=== PATIENT | male | born 1955 | race Caucasian/White ===

== ENCOUNTER 2024-08-05 20:54 | Emergency (ER) | payer MEDICARE, SELFPAY ==
[2024-08-05] VITALS (27 sets, daily range): BP systolic 54–152; BP diastolic 33–116; PULSE 59–68; RESP 14–16; TEMP 36.6; O2SAT 94–98; BMI 23.6
--- NOTE | 2024-08-05 21:08 | ED.GENADULT ---
HPI - General Adult General Date Seen: 08/05/24 Chief complaint: Laceration/Wound Stated complaint: Fall, head lac Time Seen by Provider: 08/05/24 21:08 Source: patient, family and RN notes reviewed Mode of arrival: ambulatory Limitations: altered mental status History of Present Illness HPI narrative: Rickey is a 69-year-old male from [place] who was camping out at [place] who fell and hit his forehead on a railroad tie. He was confused according to his significant other. Nursing staff notes continued feet confusion here and thus we called a T TA. Rickey notes that he has been drinking and fell tonight. He denies any prodromal symptoms prior to the fall. He is otherwise healthy. He uses Prilosec for heartburn otherwise no history of heart problems. I do ask if he has neck pain tonight and he is talking about other events. Some rumination in his thought process. Overall denies chest pain abdominal pain nausea vomiting. Related Data Allergies Allergy/AdvReac Type Severity Reaction Status Date / Time No Known Drug Allergies Allergy Verified 08/05/24 23:15 Review of Systems Status of ROS: Reports: unobtainable due to mental status Narrative: Healthy according to . [facility] Social History Smoking Status: Current some day smoker What tobacco products do you use: cigarettes Do you use any of these nicotine containing products: None How often do you have a drink containing alcohol: 4 or more times a week How many standard drinks containing alcohol do you have on a typical day: 5 or 6 How often do you have six or more drinks on one occasion: Weekly AUDIT-C Alcohol total score: 9 Non-prescribed substance use: denies use service: No Exam Narrative: Exam Narrative: Airway is open Breathing is easy Circulation-wound on forehead is hemostatic. Disability-no other deformities. Patient is awake, GCS of 14. EOM is full. Pupils are 3 mm and her sluggishly reactive bilaterally. He has a large stellate lesion noted over the medial aspect of his right eyebrow onto the forehead. This compromises epidermis dermis subcutaneous tissue. I do not note any foreign bodies read the right now. Eyebrow raise is intact. No step-offs palpated. No drainage from ears nose. Speech is normal. Neck is palpated any does not have any midline cervical tenderness. Heart with a regular rate and rhythm and lungs are clear abdomen is soft nontender. Pelvis is stable. Moving all extremities. Superficial abrasion on the right tibia. Moving all extremities. Palpation down thoracic lumbar spine without pain. Abdomen is soft nontender. Const: Vital Signs, click to edit/add: Vital Signs - 24 hr 08/05/24 20:58 08/05/24 21:09 08/05/24 21:23 Temperature 98 F Pulse Rate 64 66 Pulse Rate [Right Radial] 67 Respiratory Rate 16 Blood Pressure 143/97 H Blood Pressure [Ri ght Upper Arm] 152/116 H Pulse Oximetry 97 96 Oxygen Delivery Me thod Room Air 08/05/24 21:24 08/05/24 21:30 08/05/24 21:31 Temperature Pulse Rate 63 61 62 Pulse Rate [Right Radial] Respiratory Rate Blood Pressure 135/92 H Blood Pressure [Ri ght Upper Arm] Pulse Oximetry 97 98 96 Oxygen Delivery Me thod 08/05/24 21:42 08/05/24 21:44 08/05/24 21:45 Temperature Pulse Rate 63 61 Pulse Rate [Right Radial] Respiratory Rate Blood Pressure 54/33 L 132/95 H Blood Pressure [Ri ght Upper Arm] Pulse Oximetry 97 97 Oxygen Delivery Me thod 08/05/24 21:51 08/05/24 21:52 08/05/24 22:00 Temperature Pulse Rate 60 65 62 Pulse Rate [Right Radial] Respiratory Rate 14 Blood Pressure 125/95 H Blood Pressure [Ri ght Upper Arm] Pulse Oximetry 97 97 97 Oxygen Delivery Me thod 08/05/24 22:03 08/05/24 22:11 08/05/24 22:15 Temperature Pulse Rate 64 60 67 Pulse Rate [Right Radial] Respiratory Rate 16 16 Blood Pressure 135/91 H 121/80 Blood Pressure [Ri ght Upper Arm] Pulse Oximetry 97 96 96 Oxygen Delivery Me thod 08/05/24 22:21 08/05/24 22:30 08/05/24 22:31 Temperature Pulse Rate 63 62 59 L Pulse Rate [Right Radial] Respiratory Rate 14 14 Blood Pressure 120/81 121/80 Blood Pressure [Ri ght Upper Arm] Pulse Oximetry 96 95 96 Oxygen Delivery Me thod 08/05/24 22:32 08/05/24 22:41 08/05/24 22:45 Temperature Pulse Rate 62 63 66 Pulse Rate [Right Radial] Respiratory Rate 14 Blood Pressure 122/80 Blood Pressure [Ri ght Upper Arm] Pulse Oximetry 95 95 96 Oxygen Delivery Me thod 08/05/24 22:52 08/05/24 23:00 08/05/24 23:02 Temperature Pulse Rate 64 62 63 Pulse Rate [Right Radial] Respiratory Rate 16 16 Blood Pressure 127/87 129/92 H Blood Pressure [Ri ght Upper Arm] Pulse Oximetry 96 94 96 Oxygen Delivery Me thod Documenting provider has reviewed patient's vital signs: yes Course Course ED Course: Differential diagnosis includes but is not limited to skull fracture, intracranial bleed, electrolyte imbalance, alcohol intoxication. IV has been placed and labs drawn to include CBC, comprehensive, EtOH, EKG. Will obtain head and cervical spine CTs. Reevaluation(s) Reevaluation #1: Patient agrees to update tetanus an Adacel has been ordered. Reevaluation #2: Patient's wound was cleansed. No foreign bodies were noted. Anesthetized with 1% lidocaine with epinephrine. Wound explored no foreign bodies were noted. Wound with irrigation by nursing staff Wound itself was 3-1/2 cm with extension of the contreras in the midline approximately 4 mm inferiorly. This wound was located on the forehead immediately above the medial aspect of the right eyebrow. 5 sutures of 5 0 Vicryl were placed in interrupted fashion to bring the underlying tissue together. Nine sutures of 6 0 Ethilon were used on the surface to bring the wound edges together. The wound edges were jagged and may serrated and edematous. However, good wound approximation was achieved. Reevaluation #3: Upon closer inspection patient now has ecchymosis on the bridge of the nose. Some dried blood at the [place]. No evidence of septal hematoma. States that his nose was broken as a kid and there is some septal deviation. Have requested a facial CT. Vital Signs Vital signs: Initial Vital Signs Temperature 98 F 08/05/24 20:58 Temperature Source Temporal Artery Scan 08/05/24 20:58 Pulse Rate 67 08/05/24 20:58 Pulse Rhythm Regular 08/05/24 20:58 Respiratory Rate 16 08/05/24 20:58 Blood Pressure 152/116 H 08/05/24 20:58 Blood Pressure Mean 128 H 08/05/24 20:58 Pulse Oximetry 97 08/05/24 20:58 Oxygen Delivery Method Room Air 08/05/24 20:58 Vital Signs Temperature 98 F 08/05/24 20:58 Pulse Rate 67 08/05/24 20:58 Respiratory Rate 16 08/05/24 20:58 Blood Pressure 152/116 H 08/05/24 20:58 Pulse Oximetry 97 08/05/24 20:58 Oxygen Delivery Method Room Air 08/05/24 20:58 Temperature 98 F 08/05/24 20:58 Pulse Rate 63 08/05/24 23:02 Respiratory Rate 16 08/05/24 23:02 Blood Pressure 129/92 H 08/05/24 23:02 Pulse Oximetry 96 08/05/24 23:02 Oxygen Delivery Method Room Air 08/05/24 20:58 Medications Administered Medications: Discontinued Medications Generic Name Dose Route Start Last Admin Trade Name Freq PRN Reason Stop Dose Admin Acetaminophen 1,000 mg 08/05/24 23:33 08/06/24 00:04 Acetaminophen 500 Mg Tablet PO 08/05/24 23:34 1,000 mg ONCE ONE Administration Diphtheria/Tetanus/Acell Pertussis 0.5 ml 08/05/24 22:10 08/05/24 22:38 Tetanus/Diphth/Pertussis 0.5 Ml Syringe IM 08/05/24 22:11 0.5 ml .ONCE ONE Administration Lidocaine/Epinephrine 20 ml 08/05/24 21:42 08/06/24 00:05 Lidocaine 1%-Epi 1:100,000 INFILTRATI 08/05/24 21:43 20 ml ONCE ONE Administration Medical Decision Making [facility] Narrative Medical decision making narrative: 1. Concussion-patient does repeat questions. Hard to tell if this is from his injury verses his elevated alcohol level. Fortunately head CT was without evidence of bleed. Patient has remained alert and awake in the ER. No further complications. Asked that he abstain from any activity which could place him at a risk for further falls over the next week. Tylenol or ibuprofen as needed for discomfort. At this time would not offer anything stronger as he does have elevated alcohol level. 2. Face laceration-14 sutures were placed to repair this laceration. Superficial sutures will need removal in 5-6 days time. Monitor for signs and symptoms of infection. Recommend the use of a thin layer bacitracin twice daily to this area. Do not swim or soak head on till sutures are removed. Tetanus updated today as previous tetanus was 2010 3. Fall-no other injury at this time. Abdomen is soft nontender. Palpation of back is without any discomfort. CT of the spine is negative. Facial CT without evidence of facial fracture. Follow-up for worsening symptoms. 4. Alcohol intoxication-alcohol level 0.39. Patient states that he has been ?day drinking? since he retired in March. He denies a history of withdrawal if and denies the need to have an alcoholic drink 1st thing in the morning. However, having achieved this high number and being essentially able to converse is of course worrisome. I recommend following up with his primary MD as he will likely need support as he discontinues drinking. Bilirubin is elevated at 1.6 as is AST. ALT within normal limits. 5. Disposition-home at this time. Return for vomiting, worsening symptoms and as needed. 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 Labs: Lab Results 08/05/24 08/05/24 Range/Units 21:15 21:55 WBC 8.90 (4.50-11.00) K/uL RBC 4.39 (4.30-5.90) m/uL Hgb 15.2 (13.5-17.5) gm/dL Hct 43.0 (37.0-53.0) % MCV 98 (80-100) fL MCH 35 H (26-34) pg MCHC 35 (32-36) gm/dL RDW Coeff of Yolette 12.0 (11.5-15.5) % Plt Count 228 (140-440) K/uL Neut % (Auto) 38.2 L (42.0-72.0) % Lymph % (Auto) 44.0 (20-44) % Amite % (Auto) 8.9 (0.0-11.0) % Eos % (Auto) 8.1 H (0.0-7.0) % Baso % (Auto) 0.4 (0.0-3.0) % Neut # (Auto) 3.40 (1.7-7.0) K/uL Lymph # (Auto) 3.92 H (0.90-2.90) K/uL Amite # (Auto) 0.80 (0.00-0.90) K/UL Eos # (Auto) 0.70 H (0.00-0.50) K/uL Baso # (Auto) 0.04 (0.00-0.30) K/uL Abs Immat Gran (auto) 0.04 (0.00-0.30) K/uL Imm/Tot Granulo (auto) 0.4 % Sodium 137 (135-149) mmol/L Potassium 5.7 H 3.8 (3.6-5.1) mmol/L Chloride 103 (96-114) mmol/L Carbon Dioxide 23 (20-32) mmol/L Anion Gap 11 (7-15) mEq/L BUN 13 (7-30) mg/dL Creatinine 0.7 (0.5-1.5) mg/dL Estimated Creat Clear 68.40 Estimated GFR 100 ml/min Glucose 103 (60-115) mg/dL Calcium 8.8 (8.4-10.6) mg/dL Total Bilirubin 1.6 H (0.1-1.5) mg/dL AST 83 H (12-35) U/L ALT 34 (4-50) U/L Alkaline Phosphatase 24 L (40-150) U/L Total Protein 8.7 H (6.0-8.3) g/dL Albumin 5.1 H (3.3-5.0) g/dL Ethyl Alcohol 0.39 H* (0.01-0.03) % Imaging Data CT scan - head: Attestation: I have reviewed the pertinent imaging results. Radiologist's impression: No acute intracranial hemorrhage. No mass effect or midline shift. No hydrocephalus or extra-axial collections. White matter is within normal limits for age. Intracranial vascular calcifications. No acute osseous abnormalities. High-grade polypoid mucosal thickening paranasal sinuses. Normal soft tissues. IMPRESSION: IMPRESSION: 1. No acute intracranial abnormalities. Cervical spine CT: Attestation: I have reviewed the pertinent imaging results. My impression: I did not note any acute fractures. Radiologist's impression: No acute fracture or traumatic malalignment of the cervical spine. Craniocervical junction alignment is maintained. Advanced disc degeneration C3-4, C4-5, C5-6 and C6-7. [id number] disc degeneration elsewhere. Scattered uncovertebral and facet arthrosis with high-grade neural foraminal stenosis at C3-4 on the right, C4-5 bilaterally, C5-6 bilaterally, and low-grade elsewhere. No CT visualized high-grade spinal canal stenosis. Bony fusion along the left C3-4 and right C4-5 posterior elements. Imaged intracranial structures, cervical and paraspinous soft tissues are normal in appearance. The visualized pulmonary apices are clear. IMPRESSION: 1. No acute fracture or traumatic malalignment of the cervical spine. Facial CT: Attestation: I have reviewed the pertinent imaging results. My impression: I do not note any evidence of fracture. Radiologist's impression: Facial bones: No fractures or bone lesions. Specifically the nasal bones, temporomandibular joints, maxilla and mandible appear intact. Orbits and globes: Globes are intact. No sign of intraorbital hemorrhage or emphysema. Sinuses: Moderate polypoid mucosal thickening in the maxillary sinuses. Mild scattered mucosal thickening in the ethmoid air cells and sphenoid sinuses. Soft tissues: Right superior periorbital soft tissue swelling. IMPRESSION: Right superior periorbital soft tissue swelling. No acute facial fracture. ECG Data Attestation: I personally reviewed and interpreted this ECG as follows: Interpretation: EKG by my read shows sinus bradycardia at a rate of 59. First-degree heart block is noted with a MA interval of 2-2 milliseconds. I do not note any acute ST or T-wave changes. Discharge Plan Discharge Clinical Impression: Laceration, Fall, Concussion, Alcohol intoxication Patient Disposition: Home w/ Parent or Adult Condition: Improved Additional Instructions: 1. Sutures will be removed in 5-6 days time. You have 5 sutures under the skin that will dissolve. You will need to have the surgery was removed on the skin. Monitor for signs and symptoms of infection and seek medical attention for fever, purulent drainage and as needed. You may leave these open to air applying a thin layer of bacitracin twice daily to help with healing. Cover this area if you are in environment where the wound may get dirty. 2. Your alcohol level is significantly elevated today at 0.39. Please limit drinking. Consider support group and talked to your primary doctor about quitting. Your bilirubin is elevated at 1.6 and AST or liver function test is also elevated at 83. Please have this rechecked with your primary MD. 3. Avoid intense activity, bike riding, any activity that could place you at risk for injury if you fell again for 1 week as you recover from your concussion. Follow Up/Referrals: Provider,Not a Local [Primary Care Provider] - Stand Alone Forms: [employer] Info Instructions
--- NOTE | 2024-08-05 21:12 | CRLHL7_ITS ---
For Patients: As a result of the Century Cures Act, medical imaging exams and procedure reports are released immediately into your electronic medical record. You may view this report before your referring provider. If you have questions, please contact your health care provider. INDICATION: Fall. Hit head. TECHNIQUE: CT of the cervical spine without contrast. Coronal and sagittal reformats are included. COMPARISON: None. FINDINGS: No acute fracture or traumatic malalignment of the cervical spine. Craniocervical junction alignment is maintained. Advanced disc degeneration C3-4, C4-5, C5-6 and C6-7. [id number] disc degeneration elsewhere. Scattered uncovertebral and facet arthrosis with high-grade neural foraminal stenosis at C3-4 on the right, C4-5 bilaterally, C5-6 bilaterally, and low-grade elsewhere. No CT visualized high-grade spinal canal stenosis. Bony fusion along the left C3-4 and right C4-5 posterior elements. Imaged intracranial structures, cervical and paraspinous soft tissues are normal in appearance. The visualized pulmonary apices are clear. IMPRESSION: 1. No acute fracture or traumatic malalignment of the cervical spine. Please note that all CT scans at this facility use dose modulation, iterative reconstruction, and/or weight-based dosing when appropriate to reduce radiation dose to as low as reasonably achievable. Dictated by Kahlil Jaime MD @ 08/05/2024 9:44:20 PM (Electronically Signed)
--- NOTE | 2024-08-05 21:12 | CRLHL7_ITS ---
For Patients: As a result of the Century Cures Act, medical imaging exams and procedure reports are released immediately into your electronic medical record. You may view this report before your referring provider. If you have questions, please contact your health care provider. INDICATION: Fall. Hit head. TECHNIQUE: CT of the head without contrast. Coronal and sagittal reformats are included. COMPARISON: None. FINDINGS: No acute intracranial hemorrhage. No mass effect or midline shift. No hydrocephalus or extra-axial collections. White matter is within normal limits for age. Intracranial vascular calcifications. No acute osseous abnormalities. High-grade polypoid mucosal thickening paranasal sinuses. Normal soft tissues. IMPRESSION: IMPRESSION: 1. No acute intracranial abnormalities. Please note that all CT scans at this facility use dose modulation, iterative reconstruction, and/or weight-based dosing when appropriate to reduce radiation dose to as low as reasonably achievable. Dictated by Kahlil Jaime MD @ 08/05/2024 9:46:11 PM (Electronically Signed)
[2024-08-05 21:30] LABS: Basophils Absolute Auto 0.04 K/uL (0.00-0.30); Basophils Percent Auto 0.4 % (0.0-3.0); Eosinophils Percent Auto 8.1 % (0.0-7.0); Hemoglobin* 15.2 gm/dL (13.5-17.5); Immature Granulocytes Abs Auto 0.04 K/uL (0.00-0.30); Immature Granulocytes Pct Auto 0.4 %; Lymphocytes Absolute Auto 3.92 K/uL (0.90-2.90); Mean Corpuscular HGB Conc 35 gm/dL (32-36); Mean Corpuscular Hemoglobin 35 pg (26-34); Mean Corpuscular Volume 98 fL (80-100); Monocytes Percent Auto 8.9 % (0.0-11.0); Neutrophils Percent Auto 38.2 % (42.0-72.0); Platelet Count* 228 K/uL (140-440); Red Blood Count 4.39 m/uL (4.30-5.90)
[2024-08-05 21:32] LABS: Albumin* 5.1 g/dL (3.3-5.0); Chloride* 103 mmol/L (96-114)
[2024-08-05 21:33] LABS: Potassium* 5.7 mmol/L (3.6-5.1); Sodium* 137 mmol/L (135-149)
[2024-08-05 21:35] LABS: Anion Gap 11 mEq/L (7-15); Aspartate Amino Transferase* 83 U/L (12-35); Bilirubin Total* 1.6 mg/dL (0.1-1.5); Carbon Dioxide* 23 mmol/L (20-32); Creatinine* 0.7 mg/dL (0.5-1.5); Estimated Glomerular Filt Rate 100 ml/min
[2024-08-05 21:36] LABS: Alanine Aminotransferase* 34 U/L (4-50); Alkaline Phosphatase* 24 U/L (40-150); Blood Urea Nitrogen* 13 mg/dL (7-30); Calcium* 8.8 mg/dL (8.4-10.6); Glucose* 103 mg/dL (60-115); Total Protein* 8.7 g/dL (6.0-8.3)
[2024-08-05 21:45] LABS: Slide Review Reflex No
[2024-08-05 21:46] LABS: Ethanol* 0.39 % (0.01-0.03)
[2024-08-05 22:19] LABS: Potassium* 3.8 mmol/L (3.6-5.1)
[2024-08-05] MEDS: TETANUS/DIPHTH/PERTUSSIS 0.5 ML SYRINGE IM (22:38)
--- NOTE | 2024-08-05 23:11 | CRLHL7_ITS ---
For Patients: As a result of the Cures Act, medical imaging exams and procedure reports are released immediately into your electronic medical record. You may view this report before your referring provider. If you have questions, please contact your health care provider. INDICATION: Facial injury. TECHNIQUE: CT maxillofacial without contrast. COMPARISON: None. FINDINGS: Facial bones: No fractures or bone lesions. Specifically the nasal bones, temporomandibular joints, maxilla and mandible appear intact. Orbits and globes: Globes are intact. No sign of intraorbital hemorrhage or emphysema. Sinuses: Moderate polypoid mucosal thickening in the maxillary sinuses. Mild scattered mucosal thickening in the ethmoid air cells and sphenoid sinuses. Soft tissues: Right superior periorbital soft tissue swelling. IMPRESSION: Right superior periorbital soft tissue swelling. No acute facial fracture. Please note that all CT scans at this facility use dose modulation, iterative reconstruction, and/or weight-based dosing when appropriate to reduce radiation dose to as low as reasonably achievable. Dictated by Fidel Montalvo MD @ 08/06/2024 12:41:33 AM (Electronically Signed)
[2024-08-06] MEDS: ACETAMINOPHEN 500 MG TABLET 1000 MG PO (00:04)
[2024-08-06] MEDS: LIDOCAINE 1%-EPI 1:100,000 20 ML INFILTRATI (00:05)
== END 2024-08-06 00:54 | disposition home or self-care (01) ==
PROVIDERS: Emergency Provider Family Medicine
DX: S01.111A Laceration without foreign body of right eyelid and periocular area, initial encounter (principal); F10.129 Alcohol abuse with intoxication, unspecified; W01.10XA Fall on same level from slipping, tripping and stumbling with subsequent striking against unspecified object, initial encounter
CPT/HCPCS: 12011; 36415; 70450; 70486; 72125; 80053; 82077; 84132; 85025; 90471; 90715; 93005; 99284; 99291; A9270; G0390